=== PATIENT | male | born 1970 | race Asian ===

== ENCOUNTER 2019-11-27 19:19 | Emergency (ER) | payer OTHER ==
[~2019-11-27] VITALS: Ht 172.7 cm; Wt 77.1 kg
--- NOTE | 2019-11-27 19:45 | NUR ---
Dr. Stockton at bedside for MSE
[2019-11-27] MEDS ORDERED: CEFTRIAXONE 1 G VIAL ONE (19:58)
[2019-11-27] MEDS ORDERED: TDAP DIPH,PERTUSS,TET VAC/PF 0.5 ML DISP.SYRIN IM ONE ×2 (19:59→20:00)
[2019-11-27] MEDS ORDERED: CEFTRIAXONE 1 G VIAL IM ONE (20:00)
--- NOTE | 2019-11-27 20:09 | NUR ---
Patient discharged to home in stable condition. Written and verbal after care instructions given. Patient verbalizes understanding of instructions. Stressed follow up or return to ER for worsening s/s. Patient ambulating with steady gait. Instructed patient to wait a few mins to monitor ASE of ATB. patient declined and stated that he has taken it before with no ASE noted.
[2019-11-27 20:23] VITALS: BP 114/83
== END 2019-11-27 20:09 | disposition home or self-care (01) ==
LOC: ER 19:29
PROC: 09C0XZZ Extirpation of Matter from Right External Ear, External Approach (ICD-10-PCS; principal; 2019-11-27)
DX: S01.341A Puncture wound with foreign body of right ear, initial encounter (principal); W45.8XXA Other foreign body or object entering through skin, initial encounter; Y92.89 Other specified places as the place of occurrence of the external cause
CPT/HCPCS: 90471; 90715; 96372; 99284; J0696; A4663